=== PATIENT | male | born 1990 | race Caucasian/White ===

== ENCOUNTER 2020-04-29 10:33 | Emergency (ER) | payer OTHER ==
[2020-04-29 11:00] VITALS: BP 145/97
[2020-04-29] MEDS ORDERED: PROPARACAINE 0.5% OPHTH DROPS 15 ML LEFTEYE STA (11:19)
--- NOTE | 2020-04-29 11:32 | ED Physician Documentation ---
History of Present Illness - Stated complaint Stated Complaint: LT EYE IRATATION - Chief complaint Chief Complaint: Heent - Additonal information Additional information: 29-year-old male presents to the emergency department for evaluation of left eye pain and discomfort. He reports that he was dewebbing a closed space and felt dust or debris enter his left eye. Is been painful and watering since. He did irrigate the eye copiously at the site but symptoms have not improved. denies vision loss, though it is mildly blurry. Does not wear contacts. This is a work related injury. Review of Systems Constitutional: reports: Reviewed and negative Eyes: reports: Decreased vision, Discharge, Irritation. denies: Loss of vision Ears: reports: Reviewed and negative Nose: reports: Reviewed and negative Throat: reports: Reviewed and negative Cardiac: reports: Reviewed and negative Respiratory: reports: Reviewed and negative GI: reports: Reviewed and negative : reports: Dysuria Skin: reports: Reviewed and negative PD PAST MEDICAL HISTORY - Present Medications Home Medications: Ambulatory Orders Medication Instructions Recorded Confirmed Erythromycin Base [Erythromycin 1 gm OP TID #1 oint...g. 04/29/20 Ophthalmic Ointment] - Allergies Allergies/Adverse Reactions: Allergies Allergy/AdvReac Type Severity Reaction Status Date / Time No Known Drug Allergies Allergy Verified 04/29/20 11:00 PD ED PE EXPANDED - General General: Alert, In Pain - Eyes Eyes: PERRL, Normal accommodation, EOMI, Right eye (Left eye with generalized conjunctival injection. Large amount of clear watering. Floor seen stain reveals very small superficial abrasion at 4:00 on the lower eye. No foreign body seen.), Left eye, Eyelid swelling, No eyelid FB (everted), Injected conj/sclera, Corneal abrasion (left eye). No: Eyelid injury, Eyelid erythema Results - Vitals Vitals: Vital Signs - 24 hr 04/29/20 10:52 Temperature 37.0 C Heart Rate 87 Respiratory 20 Rate Blood Pressure 145/97 H O2 Saturation 97 Oxygen O2 Source Room air PD MEDICAL DECISION MAKING - ED course Complexity details: considered differential, d/w patient ED course: 29-year-old male presents emergency department for acute left eye pain watering and irritation after cleaning cobwebs from an enclosed space while at work. Fluorescein exam reveals a very small corneal abrasion at about 4:00. No foreign body seen. Vision Is intact. This gentleman will be prescribed erythromycin ointment to be used 2-3 times a day for the next week. Advised eye covering when use at work. Appropriate labor and industries paperwork completed. Departure - Departure Disposition: 01 Home, Self Care Clinical Impression: Corneal abrasion, left Qualifiers: Encounter type: initial encounter Qualified Code(s): S05.02XA - Injury of conjunctiva and corneal abrasion without foreign body, left eye, initial encounter Condition: Stable Record reviewed to determine appropriate education?: Yes Instructions: ED Abrasion Corneal Ch Prescriptions: Erythromycin Base [Erythromycin Ophthalmic Ointment] 1 gm OP TID #1 oint...g. Comments: Jose you do have a very small corneal abrasion at about 4:00 on your left eye. This should heal well with time. I recommend that you place the antibiotic ointment in the left lower conjunctival sac 3 times a day. Always wear safety goggles at work. The I will feel better by placing a cool compress over it for 5 minutes 4-5 times a day. It is important that you follow-up with an rn referral or patient transport officer in about 1 week to make sure that the injury has fully healed. You are cleared to return to full duty tomorrow as long as you are wearing protective eyewear
[2020-04-29] MEDS ORDERED: ERYTHROMYCIN OPHTH OINT 1 GM TUBE LEFTEYE STA (11:36)
== END 2020-04-29 12:29 | disposition home or self-care (01) ==
LOC: ED 10:33
DX: S05.02XA Injury of conjunctiva and corneal abrasion without foreign body, left eye, initial encounter (principal); X58.XXXA Exposure to other specified factors, initial encounter; Y93.H3 Activity, building and construction; Y99.0 Civilian activity done for income or pay
CPT/HCPCS: 1040M; 99282; 99283; J3490

== ENCOUNTER 2020-06-03 19:38 | Outpatient (CLI) | payer OTHER | END 2020-06-03 19:39 | disposition home or self-care (01) | LOC: COV 19:38 | PROVIDERS: ATTEND Family Medicine | DX: R05 Cough (principal); R06.02 Shortness of breath; R53.83 Other fatigue; R07.0 Pain in throat; R09.81 Nasal congestion; J34.89 Other specified disorders of nose and nasal sinuses; R11.0 Nausea; Z20.822 Contact with and (suspected) exposure to COVID-19 ==

== ENCOUNTER 2023-06-29 08:00 | Outpatient (CLI) | payer OTHER ==
[2023-06-29 21:16] LABS: BASOPHILS % (AUTO) 0.4 %; EOSINOPHILS # (AUTO) 0.2 10^3/uL (0.0-0.7); EOSINOPHILS % (AUTO) 2.5 %; HCT - HEMATOCRIT 42.8 % (42.0-52.0); HGB - HEMOGLOBIN 15.3 g/dL (14.0-18.0); LYMPHOCYTES # (AUTO) 2.1 10^3/uL (1.5-3.5); LYMPHOCYTES % (AUTO) 22.7 %; MEAN CORPUSCULAR HEMOGLOBIN 31.3 pg (27.0-31.0); MEAN CORPUSCULAR HGB CONC 35.7 g/dL (32.0-36.0); MEAN CORPUSCULAR VOLUME 87.5 fL (80.0-94.0); MEAN PLATELET VOLUME 12.6 fL (7.4-11.4); MONOCYTES % (AUTO) 10.8 %; NEUTROPHILS # (AUTO) 5.9 10^3/uL (1.5-6.6); NEUTROPHILS % (AUTO) 63.4 %; PLT - PLATELET COUNT 231 10^3/uL (130-450); RED BLOOD COUNT 4.89 10^6/uL (4.70-6.10); RED CELL DISTRIBUTION WIDTH 12.1 % (12.0-15.0); WHITE BLOOD COUNT 9.3 x10^3/uL (4.8-10.8)
[2023-06-29 21:17] LABS: ESTIMATED AVERAGE GLUCOSE 367 mg/dL (70-100); HEMOGLOBIN A1c% 14.4 % (4.27-6.07)
[2023-06-29 21:30] LABS: CREATININE,URINE 14.3 mg/dL
[2023-06-29 21:31] LABS: MICROALBUMIN,URINE < 0.7 mg/dL
[2023-06-29 21:41] LABS: THYROID STIMULATING HORMONE 2.42 uIU/mL (0.34-5.60)
[2023-06-29 22:13] LABS: ALBUMIN/GLOBULIN RATIO 1.4 (1.0-2.2); BILIRUBIN,TOTAL 0.5 mg/dL (0.2-1.0); CALCIUM 9.3 mg/dL (8.5-10.3); POTASSIUM 4.1 mmol/L (3.5-4.5); TOTAL PROTEIN 6.9 g/dL (6.4-8.9)
== END 2023-06-29 23:59 | disposition home or self-care (01) ==
LOC: LAB.N 08:00
PROVIDERS: ATTEND Family Medicine
DX: E11.8 Type 2 diabetes mellitus with unspecified complications (principal); R19.09 Other intra-abdominal and pelvic swelling, mass and lump
CPT/HCPCS: 36415; 80053; 82043; 82570; 83036; 84443; 85025

== ENCOUNTER 2023-07-01 09:40 | Emergency (ER) | payer OTHER ==
--- NOTE | 2023-07-01 10:55 | ED Physician Documentation ---
History of Present Illness - Stated complaint Stated Complaint: LUMP ON REAR - Chief complaint Chief Complaint: Wound - History obtained from History obtained from: Patient - Additonal information Additional information: The patient comes to the emergency department chief complaint of right scrotal mass. He states that has been growing over the last 5 days and that it has become increasingly uncomfortable to walk or sit. The patient denies any fevers or chills. No drainage. He was just recently diagnosed with diabetes and started on Lantus. His initial blood sugar at that time was 691 but is down to the lower 200s today. The patient states he has not felt bad with his diabetes at all. He has felt quite well other than urinating a lot. The patient denies any other complaints at this time. No penile discharge or dysuria. No history of testicular cancer. He has not really noticed any redness around the area of the mass but states it is painful and tender to the touch. PD PAST MEDICAL HISTORY - Past Medical History Cardiovascular: Hypertension Endocrine/Autoimmune: Type 2 diabetes GI: Chronic constipation : None Psych: Depression, Anxiety Musculoskeletal: None - Past Surgical History Past Surgical History: No - Present Medications Home Medications: Ambulatory Orders Medication Instructions Recorded Confirmed Amlodipine Besylate [Norvasc] 5 mg PO DAILY 07/01/23 07/01/23 Cholecalciferol (Vitamin D3) 1 cap PO DAILY 07/01/23 07/01/23 [Vitamin D3] HYDROcod/ACETAM 5/325 [[place] 5/325] 1 - 2 tablet PO Q6H PRN #14 tablet 07/01/23 Insulin Glargine [Lantus Solostar] See Rx Instructions .ROUTE .COMPLEX 07/01/23 07/01/23 [place] [[place] Carbonate] 300 mg PO TID 07/01/23 07/01/23 Nicotine 7 mg Patch [Nicoderm] 1 applic TOP DAILY 07/01/23 07/01/23 Sildenafil Citrate 1 tab PO DAILY 07/01/23 07/01/23 Sulfamethox/Trimeth 800/160 1 each PO BID #14 tablet 07/01/23 [Bactrim Ds 800/160] Venlafaxine HCl [Effexor Xr] 1 cap PO DAILY 07/01/23 07/01/23 buPROPion [Wellbutrin Xl] 300 mg PO DAILY 07/01/23 07/01/23 traZODone [Desyrel] 1 tab PO DAILY 07/01/23 07/01/23 - Allergies Allergies/Adverse Reactions: Allergies Allergy/AdvReac Type Severity Reaction Status Date / Time No Known Drug Allergies Allergy Verified 07/01/23 09:52 - Social History Does the pt smoke?: Yes Smoking Status: Current every day smoker Does the pt drink ETOH?: No Does the pt have substance abuse?: No - Immunizations Immunizations are current?: Yes PD ED PE NORMAL - Vitals Vital signs reviewed: Yes - General General: Alert and oriented X 3, No acute distress, Well developed/nourished - HEENT HEENT: Atraumatic, EOMI, Moist mucous membranes - Neck Neck: Supple, no meningeal sign - Respiratory Respiratory: No respiratory distress - Abdomen Abdomen: Soft, Non tender, Non distended - Male Male : Other (Normal male genitalia. Testicles nontender. 8 cm x 5 cm rubbery, tender mass without fluctuance in the R posterior scrotum/posterior inguinal area.) - Derm Derm: Normal color, Warm and dry, No rash, Other (No erythema overlying the mass noted above.) - Extremities Extremities: No deformity - Neuro Neuro: Alert and oriented X 3 - Psych Psych: Normal mood, Normal affect Results - Vitals Vitals: Vital Signs - 24 hr 07/01/23 07/01/23 09:44 11:52 Temperature 37.0 C Heart Rate 110 H 85 Respiratory 20 14 Rate Blood Pressure 153/99 H 125/74 O2 Saturation 100 97 Oxygen O2 Source Room air - Rads (name of study) Testicle doppler Relevant Findings:: Prelim report reviewed (1 cm anechoic fluid collection, deep), Final report received PD Medical Decision Making - ED course Complexity details: reviewed results, re-evaluated patient, considered differential, d/w patient ED course: I discussed with the patient that we will need to get an ultrasound to further evaluate this mass. There is no erythema or external evidence of infection, which seems a bit unusual. However, despite its firm, rubbery texture, the mass does feel mobile. Preliminary report of the ultrasound was soft tissue swelling with very small amount of fluid noncolored last. I discussed with the patient that at this point in time, there is probably not much benefit to attempting to drain anything and for now, we will put him on antibiotics. The patient is leaving 3 days from now and today is Sunday, so referral to urology here on [facility] is not going to be helpful. I have advised him that when he arrives in [place], if he Notices that things are getting significantly worse despite antibiotics, he should be reevaluated. The patient does have diabetes which is always a concern but for now, he does not have any evidence of Santos's gangrene or other extensive infection. Nonetheless, with his status is a diabetic, he has been given very low threshold for return. Departure - Departure Disposition: Home, Self Care Clinical Impression: Cellulitis Qualifiers: Site of cellulitis: other site Qualified Code(s): L03.818 - Cellulitis of other sites Condition: Stable Instructions: ED Infec Skin Cellulitis Prescriptions: Sulfamethox/Trimeth 800/160 [Bactrim Ds 800/160] 1 each PO BID #14 tablet HYDROcod/ACETAM 5/325 [[place] 5/325] 1 - 2 tablet PO Q6H PRN #14 tablet PRN Reason: Pain Forms: PCP List
[2023-07-01] MEDS: SULFAMETH/TRIMETH DS 800/160 MG TABLET PO STA (12:59)
--- NOTE | 2023-07-01 13:12 | Ultrasound Report ---
PROCEDURE: Testicle w/Doppler INDICATIONS: scrotal/perineal mass TECHNIQUE: Real-time scanning was performed of the scrotum and testicles, with image documentation. Color and p ulse Doppler interrogation was performed of both testicles. COMPARISON: None. FINDINGS: Right: Testicle is normal in size at 2.1 x 2 x 2.9 cm, and homogenous in echotexture. Epididymis is normal in overall size and morphology. Trace hydrocele. No varicoceles. Within the lateral right s crotal sac in the area of concern there is an anechoic 1.6 x 1 x 1.5 cm Overlying scrotal skin is dif fusely thickened measuring 5 mm. Left: Testicle is normal in size at 4.1 x 2.1 x 3.1 cm, and homogeneous in echotexture. Epididymis is normal in overall size and morphology. No hydrocele. No varicoceles. Overlying scrotal skin is n ormal in thickness. Doppler: Color and pulse Doppler demonstrate normal and symmetric arterial flow in both testicles. IMPRESSION: Focal skin thickening overlying a anechoic 1.6 cm cystic structure within the right scrotum which may represent small abscess or cyst. Reviewed by: Arik Tom MD on 07/01/2023 12:11 PM REBECCA Approved by: Arik Tom MD on 07/01/2023 12:11 PM REBECCA Station ID: [id number]
--- NOTE | 2023-07-01 13:13 | Ultrasound Report ---
PROCEDURE: Testicle w/Doppler INDICATIONS: scrotal/perineal mass TECHNIQUE: Real-time scanning was performed of the scrotum and testicles, with image documentation. Color and p ulse Doppler interrogation was performed of both testicles. COMPARISON: None. FINDINGS: Right: Testicle is normal in size at 2.1 x 2 x 2.9 cm, and homogenous in echotexture. Epididymis is normal in overall size and morphology. Trace hydrocele. No varicoceles. Within the lateral right s crotal sac in the area of concern there is an anechoic 1.6 x 1 x 1.5 cm Overlying scrotal skin is dif fusely thickened measuring 5 mm. Left: Testicle is normal in size at 4.1 x 2.1 x 3.1 cm, and homogeneous in echotexture. Epididymis is normal in overall size and morphology. No hydrocele. No varicoceles. Overlying scrotal skin is n ormal in thickness. Doppler: Color and pulse Doppler demonstrate normal and symmetric arterial flow in both testicles. IMPRESSION: Focal skin thickening overlying a anechoic 1.6 cm cystic structure within the right scrotum which may represent small abscess or cyst. Reviewed by: Arik Tom MD on 07/01/2023 12:12 PM REBECCA Approved by: Arik Tom MD on 07/01/2023 12:12 PM REBECCA Station ID: [id number]
[2023-07-01 13:53] VITALS: BP 136/82; O2SAT 100
== END 2023-07-01 13:43 | disposition home or self-care (01) ==
LOC: ED 09:40
DX: N49.2 Inflammatory disorders of scrotum (principal); I10 Essential (primary) hypertension; E11.9 Type 2 diabetes mellitus without complications; F17.200 Nicotine dependence, unspecified, uncomplicated; Z79.899 Other long term (current) drug therapy; Z79.4 Long term (current) use of insulin
CPT/HCPCS: 76870; 76882; 93975; 99283; 99284; A9270

== ENCOUNTER 2023-08-04 09:21 | Outpatient (CLI) | payer OTHER ==
[2023-08-04 18:53] LABS: BASOPHILS % (AUTO) 0.4 %; EOSINOPHILS # (AUTO) 0.3 10^3/uL (0.0-0.7); EOSINOPHILS % (AUTO) 3.5 %; HGB - HEMOGLOBIN 15.2 g/dL (14.0-18.0); LYMPHOCYTES # (AUTO) 3.1 10^3/uL (1.5-3.5); LYMPHOCYTES % (AUTO) 33.8 %; MEAN CORPUSCULAR HEMOGLOBIN 30.8 pg (27.0-31.0); MEAN CORPUSCULAR VOLUME 93.1 fL (80.0-94.0); MEAN PLATELET VOLUME 11.6 fL (7.4-11.4); MONOCYTES # (AUTO) 0.9 10^3/uL (0.0-1.0); MONOCYTES % (AUTO) 9.7 %; NEUTROPHILS # (AUTO) 4.8 10^3/uL (1.5-6.6); NEUTROPHILS % (AUTO) 52.3 %; PLT - PLATELET COUNT 305 10^3/uL (130-450); RED BLOOD COUNT 4.94 10^6/uL (4.70-6.10); RED CELL DISTRIBUTION WIDTH 11.9 % (12.0-15.0); WHITE BLOOD COUNT 9.2 x10^3/uL (4.8-10.8)
[2023-08-04 19:06] LABS: ALBUMIN 4.3 g/dL (3.2-5.5); ALBUMIN/GLOBULIN RATIO 1.6 (1.0-2.2); ALKALINE PHOSPHATASE 111 IU/L (42-121); ALT ALANINE AMINOTRANSFERASE 18 IU/L (10-60); AST ASPARTATE AMINOTRANSFERASE 12 IU/L (10-42); BILIRUBIN,TOTAL 0.8 mg/dL (0.2-1.0); BUN - BLOOD UREA NITROGEN 9 mg/dL (6-20); CALCIUM 9.9 mg/dL (8.5-10.3); CARBON DIOXIDE - CO2 30 mmol/L (21-32); CHLORIDE 103 mmol/L (101-111); CHOL/HDL RATIO 6.2 (<5.0); CHOLESTEROL 192 mg/dL; CREATININE 0.8 mg/dL (0.6-1.3); GFR - MDRD 111 (>89); GLUCOSE 118 mg/dL (74-104); HDL CHOLESTEROL 31 mg/dL; LDL CHOLESTEROL,CALCULATED 113 mg/dL; LDL/HDL RATIO 3.6 (<3.6); POTASSIUM 4.2 mmol/L (3.5-4.5); SODIUM 140 mmol/L (135-145); TRIGLYCERIDES 242 mg/dL (48-352); VLDL CHOLESTEROL 48 mg/dL
[2023-08-04 19:14] LABS: THYROID STIMULATING HORMONE 1.17 uIU/mL (0.34-5.60)
[2023-08-05 08:18] LABS: ESTIMATED AVERAGE GLUCOSE 286 mg/dL (70-100); HEMOGLOBIN A1c% 11.6 % (4.27-6.07)
== END 2023-08-04 09:22 | disposition home or self-care (01) ==
LOC: LAB.N 09:21
PROVIDERS: ATTEND Nurse Practitioner Family
DX: I10 Essential (primary) hypertension (principal); F41.9 Anxiety disorder, unspecified; F32.A Depression, unspecified; E11.8 Type 2 diabetes mellitus with unspecified complications
CPT/HCPCS: 36415; 80053; 80061; 82043; 83036; 83721; 84443; 85025

== ENCOUNTER 2023-08-31 17:20 | Outpatient (CLI) | payer OTHER ==
--- NOTE | 2023-09-03 09:18 | XRAY Report ---
PROCEDURE: Finger(s) LT INDICATIONS: CRUSHING INJURY OF LEFT MIDDLE FINGER,INITIAL ENCO TECHNIQUE: AP hand, 2 views of the third finger(s) acquired. COMPARISON: None. FINDINGS: Bones: No fractures or dislocations. No suspicious bony lesions. Soft tissues: No suspicious soft tissue calcifications or masses. IMPRESSION: No visualized acute fracture or dislocation. However, occult injury cannot be excluded. Recommend octavio rt interval imaging follow-up in 7-10 days as clinically indicated for additional evaluation. Reviewed by: Tamra Hogue MD on 09/03/2023 9:17 AM PDT Approved by: Tamra Hogue MD on 09/03/2023 9:17 AM PDT Station ID: [id number]
== END 2023-08-31 17:21 | disposition home or self-care (01) ==
LOC: DI 17:20
PROVIDERS: ATTEND Nurse Practitioner Family
DX: S67.193A Crushing injury of left middle finger, initial encounter (principal)

== ENCOUNTER 2023-11-14 13:42 | Outpatient (CLI) | payer OTHER ==
[2023-11-14 21:54] LABS: ESTIMATED AVERAGE GLUCOSE 100 mg/dL (70-100); HEMOGLOBIN A1c% 5.1 % (4.27-6.07)
== END 2023-11-14 13:43 | disposition home or self-care (01) ==
LOC: LAB.N 13:42
PROVIDERS: ATTEND Nurse Practitioner Family
DX: E11.65 Type 2 diabetes mellitus with hyperglycemia (principal)
CPT/HCPCS: 36415; 83036